=== PATIENT | male | born 1980 | race Caucasian/White ===

== ENCOUNTER 2016-12-30 12:48 | Emergency (ER) | payer SELFPAY ==
[~2016-12-30] VITALS: Ht 177.8 cm; Wt 90.0 kg
[2016-12-30 12:56] VITALS: BP 120/74
[2016-12-30] MEDS ORDERED: IBUPROFEN 800MG TABLET PO ONE (13:15)
== END 2016-12-30 13:56 | disposition home or self-care (01) ==
LOC: ER 13:04
DX: S16.1XXA Strain of muscle, fascia and tendon at neck level, initial encounter (principal); V89.2XXA Person injured in unspecified motor-vehicle accident, traffic, initial encounter; Y93.89 Activity, other specified; Y92.89 Other specified places as the place of occurrence of the external cause; Y99.8 Other external cause status
CPT/HCPCS: 99283